=== PATIENT | female | born 1940 | race American Indian/Alaskan Native ===

== ENCOUNTER 2017-09-12 10:10 | Day surgery (SDC) | payer MEDICARE ==
[2017-09-12] MEDS ORDERED: NACL 0.9% 1000 ML 1,000 ML ONE (10:45)
[2017-09-12] MEDS ORDERED: HURRICAINE ONE 20% TOPICAL SPRAY MM (10:45)
[2017-09-12 10:53] LABS: Basophils % (Auto) 0.5 % (0.0-1.8); Eosinophils # (Auto) 0.2 K/mm3 (0.0-0.4); Eosinophils % (Auto) 2.4 % (0.0-4.3); Hematocrit 33.3 % (30.3-42.9); Hemoglobin 11.4 gm/dl (10.1-14.3); Lymphocytes # (Auto) 1.6 K/mm3 (1.2-5.4); Lymphocytes % (Auto) 20.4 % (13.4-35.0); Mean Corpuscular HGB Conc 34 % (30-34); Mean Corpuscular Hemoglobin 29 pg (28-32); Mean Corpuscular Volume 84 fl (79-97); Monocytes # (Auto) 0.4 K/mm3 (0.0-0.8); Monocytes % (Auto) 5.3 % (0.0-7.3); Platelet Count 274 K/mm3 (140-440); Red Blood Count 3.98 M/mm3 (3.65-5.03); Red Cell Distribution Width 13.5 % (13.2-15.2)
[2017-09-12] MEDS ORDERED: HURRICAINE ONE 20% TOPICAL SPRAY MM NR (11:00)
[2017-09-12] MEDS ORDERED: NACL 0.9% 1000 ML 1,000 ML IV SCH (11:00)
[2017-09-12 11:03] LABS: Calcium 9.4 mg/dL (8.4-10.2)
[2017-09-12] MEDS ORDERED: DIPRIVAN 10 MG/ML IV ONE ×2 (11:03→11:04)
--- NOTE | 2017-09-12 11:03 | Anesthesia Consultation ---
Anesthesia Consult and Med Hx Date of service: 09/12/17 - Airway Anesthetic Teeth Evaluation: Dentures (upper), Partials (lower) ROM Head & Neck: Adequate Mental/Hyoid Distance: Adequate Mallampati Class: Class II Intubation Access Assessment: Probably Good - Pre-Operative Health Status ASA Pre-Surgery Classification: ASA3 Proposed Anesthetic Plan: MAC - Cardiovascular System Hx Hypertension: Yes Hx Coronary Artery Disease: No (high cholesterol) - Central Nervous System Hx Psychiatric Problems: Yes (anxiety)
--- NOTE | 2017-09-12 11:04 | Anesthesia Day of Surgery ---
Anesthesia Day of Surgery - Day of Surgery Patient Examined: Yes Patient H&P Reviewed: Yes Patient is NPO: Yes
[2017-09-12 11:05] LABS: INR 0.89 (0.87-1.13)
[2017-09-12 11:06] LABS: Partial Thromboplastin Time 29.5 Sec. (24.2-36.6)
[2017-09-12 13:53] VITALS: BP 158/113
== END 2017-09-12 14:30 | disposition home or self-care (01) ==
LOC: CATHLABREC 10:10 → EDSTATUS 11:00 → CATHLABREC 14:30
PROVIDERS: ATTEND Internal Medicine Cardiovascular Disease
DX: I34.0 Nonrheumatic mitral (valve) insufficiency (principal); E78.00 Pure hypercholesterolemia, unspecified; I10 Essential (primary) hypertension; F41.9 Anxiety disorder, unspecified; Z79.01 Long term (current) use of anticoagulants
CPT/HCPCS: 36415; 80048; 85025; 85610; 85730; 93312; 93320; 93325; J2704; J7030